=== PATIENT | female | born 1960 | race Hispanic/Latino ===

== ENCOUNTER 2019-12-22 07:35 | Day surgery (SDC) | payer BC ==
[~2019-12-22 07:35] MED LIST: ceFAZolin/Water 2 GM/20 ML 2 GM/20 ML SYRINGE IV NR
[2019-12-22] MEDS ORDERED: MIDAZOLAM 2 MG/2 ML INJ IV NR (08:24)
[2019-12-22] MEDS ORDERED: LACTATED RINGERS 1,000 ML IV SCH (08:24)
[2019-12-22] MEDS ORDERED: fentaNYL 100 MCG/2 ML INJ IV PRN (08:26)
--- NOTE | 2019-12-22 08:28 | Anesthesia Day of Surgery ---
Anesthesia Day of Surgery - Day of Surgery Patient Examined: Yes Patient H&P Reviewed: Yes Patient is NPO: Yes
--- NOTE | 2019-12-22 08:28 | Anesthesia Consultation ---
Anesthesia Consult and Med Hx Date of service: 12/22/19 - Airway Anesthetic Teeth Evaluation: Good (17 implants) ROM Head & Neck: Adequate Mental/Hyoid Distance: Adequate Mallampati Class: Class III Intubation Access Assessment: Possibly Difficult - Pulmonary Exam CTA: Yes - Cardiac Exam Cardiac Exam: RRR - Pre-Operative Health Status ASA Pre-Surgery Classification: ASA3 Proposed Anesthetic Plan: General - Pulmonary Hx Smoking: Yes (quit >30yrs ago) Hx Respiratory Symptoms: No Hx Sleep Apnea: No (REILLY PRE SCREEN HIGH RISK) - Cardiovascular System Hx Hypertension: Yes Hx Heart Attack/AMI: No Hx Percutaneous Transluminal Coronary Angioplasty (PTCA): No Hx Cardia Arrhythmia: No - Central Nervous System CVA: No Hx Psychiatric Problems: Yes (anxiety/depression/ADHD - no meds x24hrs) - Gastrointestinal Hx Gastroesophageal Reflux Disease: Yes (well controlled) - Endocrine Hx Renal Disease: No Hx Liver Disease: No Hx Insulin Dependent Diabetes: No Hx Non-Insulin Dependent Diabetes: No Hx Thyroid Disease: No - Other Systems Hx Obesity: Yes (BMI 35) - Additional Comments Anesthesia Medical History Comments: HX PE x2 in 2017, no longer on anticoagulants. IVC filter in place. No hx anesthetic complications.
[2019-12-22] MEDS ORDERED: fentaNYL 100 MCG/2 ML INJ ONE (08:39)
[2019-12-22] MEDS ORDERED: propofoL 200 MG/20 ML VIAL IV ONE ×3 (08:39→10:25)
[2019-12-22] MEDS ORDERED: LIDOCAINE MPF (2%) 20 MG/1 ML VIAL 5 ML ONE (08:39)
[2019-12-22] MEDS ORDERED: ONDANSETRON 4 MG/2 ML INJ ONE (08:53)
[2019-12-22] MEDS ORDERED: dexAMETHasone 20 MG/5 ML VIAL ONE (08:53)
[2019-12-22] MEDS ORDERED: KETOROLAC 30 MG/1 ML INJ ONE (09:00)
[2019-12-22] MEDS ORDERED: HYDROcodone/ACETAMINOPHEN 5-325 MG TAB ONE (11:28)
--- NOTE | 2019-12-22 11:36 | Post Anesthesia Evaluation ---
- Post Anesthesia Evaluation Patient Participated: Yes Airway Patent: Yes Stable Respiratory Function: Yes Nausea/Vomiting: No Temp > 96.8F: Yes Pain Manageable: Yes Adequeate Hydration: Yes Anesthesia Complications: No
--- NOTE | 2019-12-22 12:03 | Post Operative Note ---
Date of procedure: 12/22/19 Pre-op diagnosis: hemeaturia Post-op diagnosis: same Findings: normal Procedure: cysto rpgs Anesthesia: GETA Surgeon: JUVENCIO HARO Estimated blood loss: none Pathology: none Condition: stable Disposition: PACU
--- NOTE | 2019-12-22 12:04 | Discharge Summary ---
Short Stay Discharge Plan Activity: other (no straining ) Weight Bearing Status: Full Weight Bearing Diet: regular, low fat Additional Instructions: Increase oral fluids. Call for follow up appointment if not already scheduled. Follow up with: KENYON WAGNER [Other] - 7 Days JUVENCIO HARO MD [Staff Physician] - 7 Days Forms: Outpatient Surgery DC Inst.
--- NOTE | 2019-12-22 12:27 | Operative Report ---
PREOPERATIVE DIAGNOSIS: Hematuria, previous sling. POSTOPERATIVE DIAGNOSIS: Hematuria, previous sling. PROCEDURE: Cystoscopy, retrograde. SURGEON: Dr. Page. ANESTHESIA: General. FINDINGS: This is a woman with intermittent terminal hematuria. She now presents for cystoscopy. DESCRIPTION OF PROCEDURE: The patient was brought to the operating room and placed on the operating table. Following induction of anesthesia, placed in lithotomy position, prepped and draped in usual sterile fashion. Cystourethroscopy showed no evidence of erosion. There was clear efflux from each orifice. Retrograde showed good filling, good drainage bilaterally. The patient tolerated the procedure well. No significant complication. No biopsies were required was brought to recovery in stable condition. JOB# [id number] CHARAN/[id number]
--- NOTE | 2019-12-22 14:24 | Fluoroscopy Report ---
INTRAOPERATIVE FLUOROSCOPY: ABDOMEN INDICATION: LT URETERAL STONE. TECHNIQUE: Intraoperative spot images were obtained during the procedure. FINDINGS: Limited spot fluoroscopy was submitted to guide retrograde urography. The opacified renal collecting systems and ureters appear unremarkable. Please see the procedure report for further details. There has been prior fusion of the lower lumbar spine. An IVC filter is seen with the hook located at the level of the midportion of the L3 vertebral body. A portion of the filter is seen crossing the m idline and likely extending beyond the confines of the IVC. Correlation with prior imaging of the abd omen would be helpful to determine the stability of positioning of the filter. Fluoroscopy Time: 10 seconds. Fluoroscopy Images: 4. Signer Name: Cristhian Adams MD Signed: 12/22/2019 2:19 PM Workstation Name: [id number]
[2019-12-22 17:11] VITALS: BP 102/62
== END 2019-12-22 07:36 | disposition home or self-care (01) ==
LOC: OR 07:35
PROVIDERS: ATTEND Urology
DX: R31.9 Hematuria, unspecified (principal); N20.1 Calculus of ureter; E78.00 Pure hypercholesterolemia, unspecified; I10 Essential (primary) hypertension; K21.9 Gastro-esophageal reflux disease without esophagitis; E66.9 Obesity, unspecified; F32.9 Major depressive disorder, single episode, unspecified; F41.9 Anxiety disorder, unspecified; Z88.8 Allergy status to other drugs, medicaments and biological substances; Z79.899 Other long term (current) drug therapy; Z87.891 Personal history of nicotine dependence; Z98.49 Cataract extraction status, unspecified eye; Z86.711 Personal history of pulmonary embolism; Z68.35 Body mass index [BMI] 35.0-35.9, adult; Z90.710 Acquired absence of both cervix and uterus; Z87.440 Personal history of urinary (tract) infections
CPT/HCPCS: 52005; 74420; J0690; J1100; J1885; J2250; J2405; J2704; J3010; J7120; Q9967